=== PATIENT | female | born 1995 | race Caucasian/White ===

== ENCOUNTER 2022-01-02 18:40 | Emergency (ER) | payer SELFPAY ==
[~2022-01-02] VITALS: Ht 167.6 cm; Wt 109.1 kg
[2022-01-02 19:03] VITALS: BP 107/86
== END 2022-01-02 20:44 | disposition home or self-care (01) ==
LOC: ER 18:42
DX: S93.601A Unspecified sprain of right foot, initial encounter (principal); M79.671 Pain in right foot; X58.XXXA Exposure to other specified factors, initial encounter; Y93.89 Activity, other specified; Y92.89 Other specified places as the place of occurrence of the external cause; Y99.8 Other external cause status
CPT/HCPCS: 73620; 99283; L4360